=== PATIENT | female | born 1940 | race Hispanic/Latino ===

== ENCOUNTER 2017-07-15 09:30 | Inpatient (IN) | payer MEDICARE ==
[~2017-07-15] VITALS: Ht 162.6 cm; Wt 70.5 kg
[2017-07-15 09:38] LABS: BASOPHILS % (AUTO) 0.9 % (0.0-5.0); EOSINOPHILS % (AUTO) 1.1 % (0.0-8.0); HEMATOCRIT 38.9 % (36-48); LYMPHOCYTES % (AUTO) 25.8 % (21.0-51.0); MEAN CORPUSCULAR HEMOGLOBIN 31.1 pg (27.0-33.0); MEAN CORPUSCULAR HGB CONC 34.8 g/dL (32.0-36.0); MEAN CORPUSCULAR VOLUME 89.3 fL (79-99); MONOCYTES % (AUTO) 11.1 % (3.0-13.0); NEUTROPHILS % (AUTO) 61.1 % (40.0-77.0); PLATELET COUNT (AUTO) 258 K/uL (130-400); RED BLOOD CELL COUNT(AUTO) 4.36 MIL/uL (4.00-5.50); RED CELL DISTRIBUTION WIDTH 13.2 % (11.0-15.5); WHITE BLOOD COUNT (AUTO) 6.3 K/uL (4.8-10.8)
[2017-07-15 09:42] VITALS: BP 165/62
[2017-07-15 10:04] LABS: CREATININE 0.7 mg/dL (0.5-1.5); POTASSIUM 3.9 mmol/L (3.5-5.1)
[2017-07-15] MEDS ORDERED: TYL3 PO (10:40)
[2017-07-15] MEDS ORDERED: VALS160T29 PO (10:40)
[2017-07-15] MEDS ORDERED: IBUP100T53 PO (10:40)
[2017-07-16] VITALS (22 sets, daily range): BP systolic 100–166; BP diastolic 36–83
[2017-07-16] MEDS: CEFAZOLIN SODIUM 1 GM VIAL IVP SCH ×2 (05:00→08:00)
[2017-07-16] MEDS ORDERED: BUPIVACAINE/EPI/PF 0.25% 30ML VIAL IJ ONE (06:40)
[2017-07-16] MEDS ORDERED: THROMBIN-JMI 20000 UNIT KIT TP ONE (06:41)
[2017-07-16] MEDS ORDERED: DURAMORPH PF1 MG/ML 10ML AMP IV ONE (06:41)
[2017-07-16] MEDS ORDERED: BACITRACIN 50,000 UNIT VIAL ONE ×3 (06:41→09:14)
[2017-07-16] MEDS ORDERED: LACTATED RINGERS 1000ML 1,000 ML IV ONE (06:52)
[2017-07-16] MEDS ORDERED: SODIUM CHLORIDE 0.9% 10 ML VIAL ONE (06:56)
[2017-07-16] MEDS ORDERED: LIDOCAINE PF 2% 5ML ABBOJECT ONE (07:00)
[2017-07-16] MEDS ORDERED: DEXAMETHASONE SOD PHOSPHATE 10MG/ML 1ML VIAL ONE ×2 (07:00→08:56)
[2017-07-16] MEDS ORDERED: MIDAZOLAM HCL 1 MG/ML 2ML VIAL ONE (07:00)
[2017-07-16] MEDS ORDERED: GLYCOPYRROLATE 0.2 MG/ML 5 ML VIAL ONE ×2 (07:00→08:56)
[2017-07-16] MEDS ORDERED: FENTANYL CITRATE PF 50 MCG/1 ML 2ML VIAL ONE ×3 (07:01→08:25)
[2017-07-16] MEDS ORDERED: PROPOFOL 10 MG/ML 20ML VIAL IV ONE (07:01)
[2017-07-16] MEDS ORDERED: FLUT16H NASAL (07:32)
[2017-07-16] MEDS ORDERED: ROCURONIUM BROMIDE 10MG/1ML 5ML VL ONE (08:55)
[2017-07-16] MEDS ORDERED: PHENYLEPHRINE HCL 10 MG/ML 1ML VIAL IV ONE (08:55)
[2017-07-16] MEDS ORDERED: SUCCINYLCHOLINE CHLORIDE 20 MG/ML 10 ML VIAL ONE (08:55)
[2017-07-16] MEDS ORDERED: METOCLOPRAMIDE 10 MG/2 ML VIAL ONE ×2 (08:56)
[2017-07-16] MEDS ORDERED: NEOSTIGMINE METHYLSULFATE 1MG/ML IV ONE (08:56)
[2017-07-16] MEDS ORDERED: ARTIFICIAL TEARS 3.5 GM OINTMENT ONE (08:57)
[2017-07-16] MEDS ORDERED: ROPIVACAINE 0.5% 5MG/ML 30ML IJ ONE (08:57)
[2017-07-16] MEDS: LACTATED RINGERS 1000ML 1,000 ML IV SCH ×2 (10:12→23:32)
[2017-07-16] MEDS ORDERED: PROMETHAZINE HCL 25 MG/ML 1ML AMPULE IM PRN (10:15)
[2017-07-16] MEDS ORDERED: CEFAZOLIN 2GM / 50 ML 50 ML IV SCH (10:15)
[2017-07-16] MEDS ORDERED: SODIUM CHLORIDE 0.9% 10 ML VIAL IVP PRN (10:15)
[2017-07-16] MEDS ORDERED: HYDROCODONE/ACETAMINOPHEN 5/325 MG TAB PO PRN (10:15)
[2017-07-16] MEDS ORDERED: MORPHINE SULFATE 4 MG/1ML SYG IVP PRN (10:30)
[2017-07-16] MEDS ORDERED: CEFAZOLIN SODIUM 1 GM VIAL IVP SCH (10:30)
[2017-07-16] MEDS: DEXAMETHASONE SOD PHOSPHATE 4 MG/ML 1ML VIAL IVP SCH ×3 (12:16→21:11)
[2017-07-16] MEDS: IBUPROFEN 100 MG/5 ML SUSP UDCUP PO SCH ×3 (13:00→21:13)
[2017-07-16] MEDS: FLUTICASONE PROPIONATE 50MCG/SPRAY 16 GM BOTTLE NS SCH (21:13)
[2017-07-17 03:15] VITALS: BP 129/65
[2017-07-17] MEDS: DEXAMETHASONE SOD PHOSPHATE 4 MG/ML 1ML VIAL IVP SCH (04:41)
[2017-07-17 07:00] VITALS: BP 121/60
[2017-07-17] MEDS ORDERED: LOSARTAN 100 MG TABLET PO SCH (09:00)
[2017-07-17] MEDS ORDERED: ACETAMINOPHEN-CODEINE 300/30MG TAB PO SCH (09:00)
[2017-07-17] MEDS: FLUTICASONE PROPIONATE 50MCG/SPRAY 16 GM BOTTLE NS SCH (10:13)
[2017-07-17] MEDS: IBUPROFEN 100 MG/5 ML SUSP UDCUP PO SCH (10:16)
[2017-07-17 11:37] VITALS: BP 128/65
== END 2017-07-17 12:12 | disposition home or self-care (01) | DRG 517 ==
LOC: EDSTATUS 09:30 → DAHIP 07-16 05:48 → 4BH 07-16 11:14
PROVIDERS: ADMIT Neurological Surgery; ATTEND Neurological Surgery
PROC: 3E0S3BZ Introduction of Anesthetic Agent into Epidural Space, Percutaneous Approach (ICD-10-PCS; principal; 2017-07-16 07:30)
PROC: 01NB0ZZ Release Lumbar Nerve, Open Approach (ICD-10-PCS; 2017-07-16 07:30)
PROC: BR131ZZ Fluoroscopy of Lumbar Disc(s) using Low Osmolar Contrast (ICD-10-PCS; 2017-07-16 07:30)
PROC: 4A11X4G Monitoring of Peripheral Nervous Electrical Activity, Intraoperative, External Approach (ICD-10-PCS; 2017-07-16 07:30)
DX: M48.061 Spinal stenosis, lumbar region without neurogenic claudication (principal); I10 Essential (primary) hypertension; M81.0 Age-related osteoporosis without current pathological fracture
CPT/HCPCS: 36415; 72020; 80048; 85025; 96374; A4218; A4344; A4606; J0330; J0690; J1100; J2001; J2250; J2270; J2274; J2370; J2704; J2710; J2765; J2795; J3010; J3490; J7040; J7120